=== PATIENT | female | born 1945 | race Caucasian/White ===

== ENCOUNTER 2016-06-13 04:17 | Emergency (ER) | payer MEDICARE, MEDICAID ==
[~2016-06-13] VITALS: Ht 149.9 cm; Wt 40.5 kg
[~2016-06-13 04:17] MED LIST: ADLT ASA LOW81 MG OR; ADVAIR DISK1 INH; ADVAIR HF1 IN; ALBUTEROL S2.5 MG/.5 NEB; ALBUTEROL SUL0.083 % IN; ALBUTEROL0.5 % IN; ALPRAZOLAM0.25 MG PO; AMLODIPINE BESYL5 MG PO; AMOXICILLIN500 M2 PO; ANTIDEPRESSANT; ASPIRIN EC325 MG PO; ASPIRIN EC81 MG PO; ASPIRIN325 MG PO; ATUSS DS OR; AUGMENTIN875 MG OR; AVELOX400 MG OR; AVELOX400 MG PO; AZITHROMYCIN250 MG PO; AZITHROMYCIN500 MG PO; BACTRIM DS1 TAB OR; BACTRIM DS1 TAB PO; CARVEDILOL3.125 MG PO; CRESTOR10 MG OR; CRESTOR5 MG OR; DARVOCET N-100100 - OR; DARVOCET-N 100100 MG OR; DIAZIDE; DOXYCYCL HYC100 MG PO; DUONEB IN; DUONEB INH; FLEXERIL OR; FLEXERIL10 MG PO; FOSAMAX70 MG OR; LASIX 20 MG20 MG/TAB PO; LASIX 40 MG TAB40 MG PO; LEVAQUIN500 MG PO; LEVAQUIN750 MG OR; LEVAQUIN750 MG PO; LISINOPRIL20 M1 PO; LISINOPRIL20 MG PO; LISINOPRIL5 MG OR; LORTAB 7.5 OR; LORTAB5 OR; LORTAB5 PO; LOVASTATIN20 M1 OR; LOVASTATIN20 M1 PO; MEDDOSEPAK OR; MEDDOSEPAK PO; MEVACOR40 MG PO; NAPROSYN500 MG OR; NAPROSYN500 MG PO; NAPROXEN500 MG OR; NORCO1 TA1 PO; NORVASC10 M1 PO; NORVASC5 MG PO; PERCOCET 5/325M1 TAB OR; PREDNISONE10 MG PO; PREDNISONE20 MG PO; PREDNISONE50 MG PO; ROBITUSSIN AC10 ML PO; SPIRIVA HANDIHALER IN; SYMBICORT1 AE1 IN; ULTRAM50 M1 PO; VALTREX500 MG PO; VISINE TEAR1 OP; XANAX0.25 MG OR; XANAX0.25 MG PO; XANAX0.5 MG OR; ZITHROMAX250 MG OR; ZITHROMAX500 MG PO; ZOFRAN4 M1 OR; ZOLOFT50 MG PO; ZPAK PO
--- NOTE | 2016-06-13 04:43 | NUR ---
BREATHING TREATMENT GIVEN. EXPLANATION GIVEN IN HOW TO BREATH DEEPLY FOR GOOD DEPOSITION FOR THE LUNGS.
[2016-06-13 05:01] LABS: HEMATOCRIT 36.4 % (37.0-47.0); HEMOGLOBIN 11.5 g/dl (12.0-16.0); IMMATURE GRANULOCYTES 0.1 % (0.0-1.0); MEAN CELL VOLUME 92.4 fL CALC (80.0-100.0); MEAN CORPUSCULAR HGB 29.2 pG CALC (26.0-32.0); MEAN CORPUSCULAR HGB CONC 31.6 g/L CALC (32.0-36.0); NEUT# 4.97 thou/uL (2.00-7.15); RED BLOOD COUNT 3.94 mill/uL (4.20-5.60)
[2016-06-13 05:09] LABS: ALBUMIN 4.1 g/dL (3.2-5.0); ALKALINE PHOSPHATASE 75 u/l (38-126); ANION GAP 13 (6-22 (CALC)); BILIRUBIN, TOTAL 0.6 mg/dL (0.0-1.4); BUN 14 mg/dL (8-23); BUN/CREATININE RATIO 23 (12-20 (CALC)); CALCIUM 9.2 mg/dL (8.4-10.2); CARBON DIOXIDE 38 mmol/l (22-30); CHLORIDE 93 mmol/l (95-108); CREATININE 0.6 mg/dL (0.5-1.0); GFR > 60 ML/MIN (>=60 (CALC)); GFR FOR AFR.AMER. > 60 ML/MIN (>=60 (CALC)); GLUCOSE 115 mg/dL (82-115); SGOT/AST 20 u/l (9-36); SGPT/ALT 21 u/l (11-66); SODIUM 140 mmol/l (137-146); TOTAL PROTEIN 7.4 g/dL (6.3-8.2)
[2016-06-13 05:21] LABS: MYOGLOBIN 23 ng/mL (0 - 62)
[2016-06-13] MEDS ORDERED: MEDDOSEPAK PO (05:38)
[2016-06-13 05:50] VITALS: BP 131/84
== END 2016-06-13 06:02 | disposition home or self-care (01) ==
LOC: ED 04:17 → ED-I 04:26 → ED 04:26 → ED-I 04:46 → ED 06:02
PROVIDERS: Emergency Medicine
DX: J44.1 Chronic obstructive pulmonary disease with (acute) exacerbation (principal); R06.02 Shortness of breath; R94.31 Abnormal electrocardiogram [ECG] [EKG]; R05 Cough; I10 Essential (primary) hypertension

== ENCOUNTER 2016-06-14 05:02 | Inpatient (IN) | payer MEDICARE, MEDICAID ==
[2016-06-14] VITALS (18 sets, daily range): BP systolic 98–135; BP diastolic 47–65
[~2016-06-14] VITALS: Ht 149.9 cm; Wt 40.1 kg
[2016-06-14 05:58] LABS: HEMATOCRIT 37.8 % (37.0-47.0); HEMOGLOBIN 11.6 g/dl (12.0-16.0); IMMATURE GRANULOCYTES 0.5 % (0.0-1.0); MEAN CELL VOLUME 95.7 fL CALC (80.0-100.0); MEAN CORPUSCULAR HGB 29.4 pG CALC (26.0-32.0); MEAN CORPUSCULAR HGB CONC 30.7 g/L CALC (32.0-36.0); NEUT# 11.67 thou/uL (2.00-7.15); RED BLOOD COUNT 3.95 mill/uL (4.20-5.60); RED CELL DISTRI WIDTH 13.1 % (11.5-15.5)
[2016-06-14 06:08] LABS: ALBUMIN 4.2 g/dL (3.2-5.0); ALKALINE PHOSPHATASE 66 u/l (38-126); ANION GAP 18 (6-22 (CALC)); BILIRUBIN, TOTAL 0.6 mg/dL (0.0-1.4); BUN 28 mg/dL (8-23); BUN/CREATININE RATIO 31 (12-20 (CALC)); CALCIUM 9.3 mg/dL (8.4-10.2); CARBON DIOXIDE 38 mmol/l (22-30); CHLORIDE 89 mmol/l (95-108); CREATININE 0.9 mg/dL (0.5-1.0); GFR > 60 ML/MIN (>=60 (CALC)); GFR FOR AFR.AMER. > 60 ML/MIN (>=60 (CALC)); GLUCOSE 301 mg/dL (82-115); POTASSIUM 4.7 mmol/l (3.5-5.1); SGOT/AST 22 u/l (9-36); SGPT/ALT 25 u/l (11-66); SODIUM 141 mmol/l (137-146); TOTAL PROTEIN 7.4 g/dL (6.3-8.2)
[2016-06-14 06:14] LABS: PROTHROMBIN TIME 10.7 SECONDS (9.0-12.5)
[2016-06-14 06:21] LABS: MYOGLOBIN 70 ng/mL (0 - 62)
[2016-06-15] VITALS (17 sets, daily range): BP systolic 113–166; BP diastolic 55–78
[2016-06-15 05:53] LABS: ANION GAP 9 (6-22 (CALC)); BUN 26 mg/dL (8-23); BUN/CREATININE RATIO 43 (12-20 (CALC)); CALCIUM 8.4 mg/dL (8.4-10.2); CARBON DIOXIDE 38 mmol/l (22-30); CHLORIDE 96 mmol/l (95-108); CREATININE 0.6 mg/dL (0.5-1.0); GFR > 60 ML/MIN (>=60 (CALC)); GFR FOR AFR.AMER. > 60 ML/MIN (>=60 (CALC)); GLUCOSE 111 mg/dL (82-115); MAGNESIUM 1.8 mg/dL (1.6-2.3); POTASSIUM 4.9 mmol/l (3.5-5.1); SODIUM 138 mmol/l (137-146)
[2016-06-15 06:40] LABS: HEMOGLOBIN 9.4 g/dl (12.0-16.0); MEAN CELL VOLUME 96.9 fL CALC (80.0-100.0); MEAN CORPUSCULAR HGB 29.4 pG CALC (26.0-32.0); MEAN CORPUSCULAR HGB CONC 30.3 g/L CALC (32.0-36.0); RED BLOOD COUNT 3.2 mill/uL (4.20-5.60); RED CELL DISTRI WIDTH 13.2 % (11.5-15.5)
[2016-06-16] VITALS (21 sets, daily range): BP systolic 90–186; BP diastolic 56–95
[2016-06-16 05:45] LABS: HEMATOCRIT 36.2 % (37.0-47.0); HEMOGLOBIN 10.8 g/dl (12.0-16.0); IMMATURE GRANULOCYTES 4.4 % (0.0-1.0); MEAN CELL VOLUME 97.8 fL CALC (80.0-100.0); MEAN CORPUSCULAR HGB 29.2 pG CALC (26.0-32.0); MEAN CORPUSCULAR HGB CONC 29.8 g/L CALC (32.0-36.0); NEUT# 8.32 thou/uL (2.00-7.15); RED BLOOD COUNT 3.7 mill/uL (4.20-5.60); RED CELL DISTRI WIDTH 13.1 % (11.5-15.5)
[2016-06-16 05:49] LABS: ANION GAP 15 (6-22 (CALC)); BUN 29 mg/dL (8-23); BUN/CREATININE RATIO 46 (12-20 (CALC)); CALCIUM 9.2 mg/dL (8.4-10.2); CARBON DIOXIDE 35 mmol/l (22-30); CHLORIDE 95 mmol/l (95-108); CREATININE 0.6 mg/dL (0.5-1.0); GFR > 60 ML/MIN (>=60 (CALC)); GFR FOR AFR.AMER. > 60 ML/MIN (>=60 (CALC)); GLUCOSE 108 mg/dL (82-115); POTASSIUM 5.1 mmol/l (3.5-5.1); SODIUM 140 mmol/l (137-146)
[2016-06-17] VITALS (14 sets, daily range): BP systolic 109–148; BP diastolic 50–74
[2016-06-17 04:42] LABS: HEMATOCRIT 33.4 % (37.0-47.0); IMMATURE GRANULOCYTES 1.5 % (0.0-1.0); MEAN CELL VOLUME 95.7 fL CALC (80.0-100.0); MEAN CORPUSCULAR HGB 28.7 pG CALC (26.0-32.0); MEAN CORPUSCULAR HGB CONC 29.9 g/L CALC (32.0-36.0); NEUT# 5.35 thou/uL (2.00-7.15); RED BLOOD COUNT 3.49 mill/uL (4.20-5.60); RED CELL DISTRI WIDTH 12.9 % (11.5-15.5)
[2016-06-17 04:56] LABS: BUN 28 mg/dL (8-23); BUN/CREATININE RATIO 42 (12-20 (CALC)); CALCIUM 8.9 mg/dL (8.4-10.2); CHLORIDE 91 mmol/l (95-108); CREATININE 0.7 mg/dL (0.5-1.0); GFR > 60 ML/MIN (>=60 (CALC)); GFR FOR AFR.AMER. > 60 ML/MIN (>=60 (CALC)); GLUCOSE 128 mg/dL (82-115); POTASSIUM 4.5 mmol/l (3.5-5.1); SODIUM 140 mmol/l (137-146)
[2016-06-17 05:02] LABS: ANION GAP 7 (6-22 (CALC))
[2016-06-17 05:14] LABS: CARBON DIOXIDE 47 mmol/l (22-30)
[2016-06-18] VITALS (7 sets, daily range): BP systolic 112–153; BP diastolic 50–64
[2016-06-18 04:37] LABS: HEMOGLOBIN 9.7 g/dl (12.0-16.0); IMMATURE GRANULOCYTES 1.3 % (0.0-1.0); MEAN CELL VOLUME 94.2 fL CALC (80.0-100.0); MEAN CORPUSCULAR HGB 29.5 pG CALC (26.0-32.0); MEAN CORPUSCULAR HGB CONC 31.3 g/L CALC (32.0-36.0); NEUT# 5.09 thou/uL (2.00-7.15); RED BLOOD COUNT 3.29 mill/uL (4.20-5.60); RED CELL DISTRI WIDTH 12.8 % (11.5-15.5)
[2016-06-18 04:47] LABS: ALBUMIN 3.2 g/dL (3.2-5.0); BUN 29 mg/dL (8-23); CALCIUM 9.1 mg/dL (8.4-10.2); CHLORIDE 93 mmol/l (95-108); CREATININE 0.9 mg/dL (0.5-1.0); GFR > 60 ML/MIN (>=60 (CALC)); GFR FOR AFR.AMER. > 60 ML/MIN (>=60 (CALC)); GLUCOSE 114 mg/dL (82-115); POTASSIUM 4.3 mmol/l (3.5-5.1); SODIUM 138 mmol/l (137-146)
[2016-06-18 04:59] LABS: CARBON DIOXIDE 42 mmol/l (22-30)
[2016-06-18] MEDS ORDERED: LASIX 20 MG20 MG/TAB PO (11:43)
[2016-06-18] MEDS ORDERED: XANAX0.25 MG PO (11:45)
[2016-06-18] MEDS ORDERED: PREDNISONE10 MG PO (11:45)
[2016-06-18] MEDS ORDERED: ZITHROMAX500 MG PO (11:47)
== END 2016-06-18 14:30 | DRG 189 ==
LOC: ENPENDDIS → ED 05:02 → ED-I 06:30 → ED 06:47 → ICU 06:48
PROVIDERS: Emergency Medicine; Internal Medicine; ADMIT Internal Medicine; ATTEND Internal Medicine
PROC: 5A09457 Assistance with Respiratory Ventilation, 24-96 Consecutive Hours, Continuous Positive Airway Pressure (ICD-10-PCS; 2016-06-14)
PROC: 3E0234Z Introduction of Serum, Toxoid and Vaccine into Muscle, Percutaneous Approach (ICD-10-PCS; principal; 2016-06-15)
DX: J96.22 Acute and chronic respiratory failure with hypercapnia (principal); E87.2 Acidosis; I27.2 Other secondary pulmonary hypertension; J44.0 Chronic obstructive pulmonary disease with (acute) lower respiratory infection; Z99.81 Dependence on supplemental oxygen; J44.1 Chronic obstructive pulmonary disease with (acute) exacerbation; J96.21 Acute and chronic respiratory failure with hypoxia; J20.9 Acute bronchitis, unspecified; G47.33 Obstructive sleep apnea (adult) (pediatric); I25.10 Atherosclerotic heart disease of native coronary artery without angina pectoris; I10 Essential (primary) hypertension; M19.90 Unspecified osteoarthritis, unspecified site; F32.9 Major depressive disorder, single episode, unspecified; F41.1 Generalized anxiety disorder; I73.9 Peripheral vascular disease, unspecified; I35.0 Nonrheumatic aortic (valve) stenosis; E78.5 Hyperlipidemia, unspecified; Z87.891 Personal history of nicotine dependence; Z23 Encounter for immunization; Z95.820 Peripheral vascular angioplasty status with implants and grafts
CPT/HCPCS: J0692; J1956

== ENCOUNTER 2016-07-28 09:44 | Emergency (ER) | payer MEDICARE, MEDICAID ==
[~2016-07-28] VITALS: Ht 149.9 cm; Wt 43.2 kg
[2016-07-28] MEDS ORDERED: MELATONIN1 TA1 PO (10:09)
[2016-07-28 10:23] LABS: HEMATOCRIT 37.2 % (37.0-47.0); HEMOGLOBIN 11.5 g/dl (12.0-16.0); IMMATURE GRANULOCYTES 0.8 % (0.0-1.0); MEAN CELL VOLUME 93.9 fL CALC (80.0-100.0); MEAN CORPUSCULAR HGB CONC 30.9 g/L CALC (32.0-36.0); NEUT# 13.96 thou/uL (2.00-7.15); RED BLOOD COUNT 3.96 mill/uL (4.20-5.60); RED CELL DISTRI WIDTH 12.6 % (11.5-15.5)
[2016-07-28 10:32] LABS: ALBUMIN 4.4 g/dL (3.2-5.0); ALKALINE PHOSPHATASE 88 u/l (38-126); ANION GAP 15 (6-22 (CALC)); BILIRUBIN, TOTAL 1.7 mg/dL (0.0-1.4); BUN 32 mg/dL (8-23); BUN/CREATININE RATIO 42 (12-20 (CALC)); CALCIUM 9.6 mg/dL (8.4-10.2); CARBON DIOXIDE 38 mmol/l (22-30); CHLORIDE 96 mmol/l (95-108); CREATININE 0.8 mg/dL (0.5-1.0); GFR > 60 ML/MIN (>=60 (CALC)); GFR FOR AFR.AMER. > 60 ML/MIN (>=60 (CALC)); GLUCOSE 128 mg/dL (82-115); POTASSIUM 5.1 mmol/l (3.5-5.1); SGOT/AST 57 u/l (9-36); SGPT/ALT 34 u/l (11-66); SODIUM 143 mmol/l (137-146); TOTAL PROTEIN 7.7 g/dL (6.3-8.2)
[2016-07-28 10:45] LABS: MYOGLOBIN 78 ng/mL (0 - 62)
[2016-07-28 11:55] VITALS: BP 109/53
== END 2016-07-28 12:01 | disposition short-term general hospital (02) ==
LOC: ED 09:44
PROVIDERS: Emergency Medicine
DX: I21.4 Non-ST elevation (NSTEMI) myocardial infarction (principal); I25.10 Atherosclerotic heart disease of native coronary artery without angina pectoris; I10 Essential (primary) hypertension; Z95.5 Presence of coronary angioplasty implant and graft; R06.02 Shortness of breath; R05 Cough; J44.9 Chronic obstructive pulmonary disease, unspecified
CPT/HCPCS: J1650

== ENCOUNTER 2016-08-27 03:49 | Inpatient (IN) | payer MEDICARE, MEDICAID ==
[2016-08-27] VITALS (14 sets, daily range): BP systolic 110–157; BP diastolic 50–86
[~2016-08-27] VITALS: Ht 149.9 cm; Wt 43.2 kg
[~2016-08-27 03:49] MED LIST changes: -LISINOPRIL20 MG PO; +MELATONIN1 TA1 PO; +ZESTRIL5 MG PO
[2016-08-27 04:54] LABS: ALBUMIN 3.7 g/dL (3.2-5.0); ALKALINE PHOSPHATASE 76 u/l (38-126); ANION GAP 11 (6-22 (CALC)); BILIRUBIN, TOTAL 0.8 mg/dL (0.0-1.4); BUN 12 mg/dL (8-23); BUN/CREATININE RATIO 20 (12-20 (CALC)); CALCIUM 8.9 mg/dL (8.4-10.2); CARBON DIOXIDE 37 mmol/l (22-30); CHLORIDE 97 mmol/l (95-108); CREATININE 0.6 mg/dL (0.5-1.0); GFR > 60 ML/MIN (>=60 (CALC)); GFR FOR AFR.AMER. > 60 ML/MIN (>=60 (CALC)); GLUCOSE 216 mg/dL (82-115); POTASSIUM 4.6 mmol/l (3.5-5.1); SGOT/AST 50 u/l (9-36); SGPT/ALT 53 u/l (11-66); SODIUM 141 mmol/l (137-146); TOTAL PROTEIN 6.3 g/dL (6.3-8.2)
[2016-08-27 05:04] LABS: HEMATOCRIT 31.3 % (37.0-47.0); HEMOGLOBIN 9.4 g/dl (12.0-16.0); IMMATURE GRANULOCYTES 0.5 % (0.0-1.0); MEAN CELL VOLUME 95.4 fL CALC (80.0-100.0); MEAN CORPUSCULAR HGB 28.7 pG CALC (26.0-32.0); NEUT# 9.54 thou/uL (2.00-7.15); RED BLOOD COUNT 3.28 mill/uL (4.20-5.60); RED CELL DISTRI WIDTH 12.5 % (11.5-15.5)
[2016-08-27 05:06] LABS: MYOGLOBIN 24 ng/mL (0 - 62)
[2016-08-28 00:01] VITALS: BP 111/53
[2016-08-28 02:00] VITALS: BP 132/45
[2016-08-28 04:00] VITALS: BP 136/61
[2016-08-28 04:55] LABS: HEMATOCRIT 28.1 % (37.0-47.0); HEMOGLOBIN 8.7 g/dl (12.0-16.0); IMMATURE GRANULOCYTES 0.3 % (0.0-1.0); MEAN CORPUSCULAR HGB 29.1 pG CALC (26.0-32.0); NEUT# 6.68 thou/uL (2.00-7.15); RED BLOOD COUNT 2.99 mill/uL (4.20-5.60); RED CELL DISTRI WIDTH 12.7 % (11.5-15.5)
[2016-08-28 05:02] LABS: ANION GAP 11 (6-22 (CALC)); BUN 24 mg/dL (8-23); BUN/CREATININE RATIO 37 (12-20 (CALC)); CARBON DIOXIDE 39 mmol/l (22-30); CHLORIDE 98 mmol/l (95-108); CREATININE 0.6 mg/dL (0.5-1.0); GFR > 60 ML/MIN (>=60 (CALC)); GFR FOR AFR.AMER. > 60 ML/MIN (>=60 (CALC)); GLUCOSE 139 mg/dL (82-115); POTASSIUM 5.1 mmol/l (3.5-5.1); SODIUM 143 mmol/l (137-146)
[2016-08-28 05:30] LABS: URINE BILIRUBIN - DIPSTICK NEGATIVE (NEGATIVE); URINE BLOOD DIPSTICK NEGATIVE (NEGATIVE); URINE CLARITY CLEAR; URINE COLOR YELLOW; URINE GLUCOSE - DIPSTICK NEGATIVE (NEGATIVE); URINE KETONE NEGATIVE (NEGATIVE); URINE LEUK ESTERASE NEGATIVE (NEGATIVE); URINE NITRITE - DIPSTICK NEGATIVE (Negative); URINE PROTEIN - DIPSTICK TRACE mg/dL (NEG-TRACE); URINE SPECIFIC GRAVITY 1.025; URINE UROBILINOGEN - DIPSTICK 0.2 E.U./dL (0.2)
[2016-08-28 05:55] VITALS: BP 123/63
[2016-08-28 08:00] VITALS: BP 140/59
[2016-08-28 10:00] VITALS: BP 155/66
[2016-08-28] MEDS ORDERED: PREDNISONE10 MG PO (10:56)
[2016-08-28] MEDS ORDERED: ZITHROMAX500 MG PO (10:56)
[2016-08-29] MEDS ORDERED: PROTONIX40 M2 PO (16:39)
[2016-08-29] MEDS ORDERED: LASIX 40 MG TAB40 MG PO (16:39)
[2016-08-29] MEDS ORDERED: COREG3.125 MG PO (16:42)
[2016-08-29] MEDS ORDERED: ALDACTONE25 MG PO (16:43)
== END 2016-08-28 12:35 | disposition home or self-care (01) | DRG 189 ==
LOC: ENPENDDIS → ED 03:49 → ED-I 05:21 → ED 05:31 → ICU 05:32
PROVIDERS: Emergency Medicine; Nurse Practitioner Family; ADMIT Internal Medicine; ATTEND Internal Medicine
PROC: 5A09357 Assistance with Respiratory Ventilation, Less than 24 Consecutive Hours, Continuous Positive Airway Pressure (ICD-10-PCS; principal; 2016-08-27)
DX: J96.22 Acute and chronic respiratory failure with hypercapnia (principal); J44.0 Chronic obstructive pulmonary disease with (acute) lower respiratory infection; I35.0 Nonrheumatic aortic (valve) stenosis; Z99.81 Dependence on supplemental oxygen; J20.9 Acute bronchitis, unspecified; I10 Essential (primary) hypertension; J96.11 Chronic respiratory failure with hypoxia; I25.10 Atherosclerotic heart disease of native coronary artery without angina pectoris; F32.9 Major depressive disorder, single episode, unspecified; I73.9 Peripheral vascular disease, unspecified; E78.5 Hyperlipidemia, unspecified; F41.1 Generalized anxiety disorder; G47.33 Obstructive sleep apnea (adult) (pediatric); I25.2 Old myocardial infarction; Z91.19 Patient's noncompliance with other medical treatment and regimen; Z95.5 Presence of coronary angioplasty implant and graft; Z87.891 Personal history of nicotine dependence; Z95.820 Peripheral vascular angioplasty status with implants and grafts
CPT/HCPCS: J1650

== ENCOUNTER 2016-08-29 11:28 | Inpatient (IN) | payer MEDICARE, MEDICAID ==
[2016-08-29] VITALS (8 sets, daily range): BP systolic 104–152; BP diastolic 48–76
[~2016-08-29] VITALS: Ht 149.9 cm; Wt 50.0 kg
--- NOTE | 2016-08-29 11:36 | NUR ---
EMS STRETCHER TO ER ROOM 10, TO BED. PT CONVERSATIONALLY DYSPNEIC UNABLE TO SPEAK BUT A FEW WORDS. IN TRIPOD POSITION USING ACCESSORY MUSCLES.
--- NOTE | 2016-08-29 11:40 | NUR ---
PLACED ON BIPAP PER RT AND O2 SAT INCREASED TO 95%, RESP SLOWED TO 26PM, LESS LABORED, PT STATES "I ALREADY FEEL BETTER". INITIATED SECOND IV PT DISLODGED EMS SITE.
--- NOTE | 2016-08-29 12:12 | NUR ---
PT RESTING WITH HOB ELEVATED. CONTINUES ON BIPAP IN NO ACUTE DISTRESS. O2 SAT 96%, VSS. SKIN PWD. PT ALERT AND CONVERSIVE WHEN AWOKEN, NO DYSPNEA NOTED WHILE ON BIPAP
[2016-08-29 12:16] LABS: HEMATOCRIT 30.4 % (37.0-47.0); HEMOGLOBIN 9.2 g/dl (12.0-16.0); IMMATURE GRANULOCYTES 0.8 % (0.0-1.0); MEAN CELL VOLUME 96.5 fL CALC (80.0-100.0); MEAN CORPUSCULAR HGB 29.2 pG CALC (26.0-32.0); MEAN CORPUSCULAR HGB CONC 30.3 g/L CALC (32.0-36.0); NEUT# 13.17 thou/uL (2.00-7.15); RED BLOOD COUNT 3.15 mill/uL (4.20-5.60); RED CELL DISTRI WIDTH 13.2 % (11.5-15.5)
[2016-08-29 12:21] LABS: ALBUMIN 3.7 g/dL (3.2-5.0); ALKALINE PHOSPHATASE 64 u/l (38-126); BILIRUBIN, TOTAL 0.8 mg/dL (0.0-1.4); BUN 25 mg/dL (8-23); BUN/CREATININE RATIO 35 (12-20 (CALC)); CALCIUM 9.4 mg/dL (8.4-10.2); CHLORIDE 96 mmol/l (95-108); CREATININE 0.7 mg/dL (0.5-1.0); GFR > 60 ML/MIN (>=60 (CALC)); GFR FOR AFR.AMER. > 60 ML/MIN (>=60 (CALC)); GLUCOSE 116 mg/dL (82-115); SGOT/AST 85 u/l (9-36); SGPT/ALT 101 u/l (11-66); SODIUM 143 mmol/l (137-146); TOTAL PROTEIN 6.3 g/dL (6.3-8.2)
[2016-08-29 12:33] LABS: MYOGLOBIN 40 ng/mL (0 - 62)
[2016-08-29 12:44] LABS: ANION GAP 14 (6-22 (CALC)); CARBON DIOXIDE 39 mmol/l (22-30); POTASSIUM 5.5 mmol/l (3.5-5.1)
--- NOTE | 2016-08-29 13:16 | NUR ---
RT AT BEDSIDE ADMINISTERING BREATHING TREATMENT. PT TOELRATING WELL. TRIAL TO O2@3LPM VIA NC PER .
--- NOTE | 2016-08-29 13:55 | NUR ---
SPOKE WITH ANTONIO AND NOTIFIED OF IMPROVEMENT IN PTS CONDITION. ANTONIO STATES SHE WILL GET A RIDE TO ED TO RN TRANSITIONAL PT. INSTRUCTED TO BRING CPAP SO RESPIRATORY CAN REVIEW O2 SETUP WITH CPAP MACHINE. STATES UNDERSTANDING. PT AWARE AND AGREEABLE TO SAME.
--- NOTE | 2016-08-29 14:40 | NUR ---
PTS FAMILY ARRIVES, ANN FROM RT AT BEDSIDE AND DISCUSSED SETTINGS AND APPLYING O2 TO PTS HOME CPAP WITH PTS GRANDDAUGHTER. GRANDDAUGHTER RETURNS DEMO. PT AWAKE AND ALERT DRINKING JUICE ON O2@3LPM VIA NC
--- NOTE | 2016-08-29 15:15 | NUR ---
PT BECAME VERY DYSPNEIC WHEN SWITCHING OVER TO HOME O2. O2 SAT DROPPED TO 72% RT AT BEDSIDE AND BIPAP REAPPLIED PER MD ORDER.
--- NOTE | 2016-08-29 15:47 | NUR ---
PER GRANDDAUGHTER SERGEY, PT TAKES "A LOT MORE MEDICINE AT HOME" FAMILY WENT HOME TO GET MEDS SO NURSE CAN UPDATE MED REC.
--- NOTE | 2016-08-29 15:59 | NUR ---
PT RESTING IN NO ACUTE DISTRESS.VV ON CONTINUOUS BIPAP
--- NOTE | 2016-08-29 16:25 | NUR ---
PT ICU IN STABLE CONDITION VIA STRETCHER, BIPAP IN PLACE.
--- NOTE | 2016-08-29 16:30 | NUR ---
PT TRANSFERRED VIA STRETCHER AND 3 STAFF MEMBERS FROM ER TO ICU. PT IS ON BIPAP. SETTINGS PER RT FLOW SHEET. PT SPO2 IS 96%. PT DOES NOT APPEAR TO BE IN RESPIRATORY DISTRESS. ABLE TO COMMUNICATE WHILE WEARING BIPAP. PT HISTORY OBTAINED, ASSESSMENT PERFORMED, MEDICATION REC UPDATED ALSO. PT ORIENTATED TO ROOM, RIGHTS, RESPONSIBILITIES AND CALL LIGHT. PT DENIES PAIN OF ANY NATURE. VSS, CERTIFIED PROSTHETIST/ORTHOTIST IN PLACE THAT READS SR HR 65-75. INSTRUCTED PT TO CALL FOR ASSISTANCE, PT VERBALIZES UNDERSTANDING.
[2016-08-29] MEDS ORDERED: PROTONIX40 M2 PO (16:39)
[2016-08-29] MEDS ORDERED: LASIX 40 MG TAB40 MG PO (16:39)
--- NOTE | 2016-08-29 16:40 | NUR ---
PT STATES "TAKE THIS DAMN MASK OFF OF ME, I WANT TO WEAR MY NASAL CANNULA." BIPAP PLACED ON STANDBY, AND NC APPLIED. PT TOLERATING SOURCE OF O2 WITHOUT DIFFICULTY, SPO2 >92% ON 3L. CALL LIGHT WITHIN REACH. INSTRUCTED PT TO CALL FOR ASSISTANCE, PT STATES UNDERSTANDING.
[2016-08-29] MEDS ORDERED: COREG3.125 MG PO (16:42)
[2016-08-29] MEDS ORDERED: ALDACTONE25 MG PO (16:43)
--- NOTE | 2016-08-29 18:50 | NUR ---
RECEIVED REPORT FROM LEON BARFIELD RN. INTRODUCED TO PT, FOUND PT SLEEPING QUIELTY IN BED, A/O X3; DENIES PAIN OR SOB, RESP ARE EVEN AND UNLABORED, VOICES NO COMPLAINTS AT THIS TIME, VSS, WILL FOLLOW UP WITH ASSESSMENT AND MEDS.
--- NOTE | 2016-08-29 20:35 | NUR ---
ASSISTED PT OOB TO BSC, UNSTEADY GAIT NOTED, VOIDED 300 ML OF CONCENTRATED YELLOW URINE, NOW SITTING ON SIDE OF BED EATING DINNER, WARMED DINER IN MICROWAVE, PT TOLERATED ACTIVITY WELL, O2SATS ARE 93% ON 3LPM VIA NC, NO BM NOTED AT THIS TIME; PM ASSESSMENT COMPLETED AT THIS TIME, SEE INTERVENTIONS FOR DETAILS, LUNGS ARE DIMINISHED ALLTHROUGHOUT, ERNESTO HOSE ARE IN PLACE, REINFORCED SAFETY MEASURES, EXPLAINED PLAN OF CARE AND MED SCHEDULE, VOICES UNDERSTANDING. SR ON MONITOR, HR 62. PT STATES USES 3L OF O2 VIA NC AT HOME ONLY WHEN SHE FEELS SHE NEEDS IT, STATES USES ASSISTIVE DEVICES AT HOME TO AMBULATE, PT DENIES FEELING SOB WHILE EATING, WILL CONTINUE TO MONITOR.
--- NOTE | 2016-08-29 21:10 | NUR ---
PT TALKACTIVE ON THE PHONE AT THIS TIME. SPO2 97% AT THIS TIME WHILE ON THE PHONE.
--- NOTE | 2016-08-29 22:08 | NUR ---
PT APPEARS TO BE SLEEPING IN BED, RESPONDS TO VERBAL STIMULI, RESP ARE UNLABORED, DENIES PAIN OR SOB, SPO2 100% ON 3LPM VIA NC, NO DISTRESS NOTED, WILL CONTINUE TO MONITOR.
[2016-08-30] VITALS (12 sets, daily range): BP systolic 106–174; BP diastolic 53–78
--- NOTE | 2016-08-30 00:58 | NUR ---
PT RESP ARE EVEN AND UNLABORED, PT IS AFEBRILE, VSS, CONTINUE SR ON MONITOR, HR 60, SPO2 100% AT THIS TIME, VOICES NO COMPLAINTS, DENIES PAIN OR DISCOMFORT, WILL CONTINUE TO MONITOR.
--- NOTE | 2016-08-30 01:55 | NUR ---
PT APPEARS TO BE SLEEPING, AROUSES TO VERBAL OR PHYSICAL STIMULI, OFFERS NO COMPLAINTS, NO SIGNS OF DISTRESS NOTED, VSS, RESP ARE EVEN AND UNLABORED, SPO2 100% 3L O2 NC; WILL CONTINUE TO MONITOR.
--- NOTE | 2016-08-30 04:00 | NUR ---
ASSISTED PT OOB TO BSC, VOIDED 500 ML OF CLEAR YELLOW URINE, PT TOLERATED ACTIVITY WELL, SPO2 98% DURING ACTIVITY, RESP ARE EVEN AND UNLABORED, NO DISTRESS NOTED, PT DENIES PAIN OR SOB, PROVIDED FRESH WATER AND APPLE JUICE PER PT REQUEST, COLLECTED U/A AND SENT IT TO LAB. ENCOURAGED PT TO CALL IF NEEDED, VSS AND AFEBRILE, SAFETY MEASURES REMAIN IN PLACES.
[2016-08-30 04:45] LABS: URINE BILIRUBIN - DIPSTICK NEGATIVE (NEGATIVE); URINE BLOOD DIPSTICK NEGATIVE (NEGATIVE); URINE CLARITY CLEAR; URINE COLOR YELLOW; URINE GLUCOSE - DIPSTICK NEGATIVE (NEGATIVE); URINE KETONE NEGATIVE (NEGATIVE); URINE LEUK ESTERASE NEGATIVE (NEGATIVE); URINE NITRITE - DIPSTICK NEGATIVE (Negative); URINE PROTEIN - DIPSTICK NEGATIVE (NEG-TRACE); URINE SPECIFIC GRAVITY 1.025; URINE UROBILINOGEN - DIPSTICK 0.2 E.U./dL (0.2)
[2016-08-30 05:30] LABS: BUN 28 mg/dL (8-23); BUN/CREATININE RATIO 48 (12-20 (CALC)); CALCIUM 9.2 mg/dL (8.4-10.2); CHLORIDE 96 mmol/l (95-108); CREATININE 0.6 mg/dL (0.5-1.0); GFR > 60 ML/MIN (>=60 (CALC)); GFR FOR AFR.AMER. > 60 ML/MIN (>=60 (CALC)); GLUCOSE 135 mg/dL (82-115); POTASSIUM 5.1 mmol/l (3.5-5.1); SODIUM 143 mmol/l (137-146)
[2016-08-30 05:38] LABS: ANION GAP 11 (6-22 (CALC))
[2016-08-30 05:51] LABS: IMMATURE GRANULOCYTES 0.7 % (0.0-1.0); MEAN CELL VOLUME 94.9 fL CALC (80.0-100.0); MEAN CORPUSCULAR HGB 29.2 pG CALC (26.0-32.0); MEAN CORPUSCULAR HGB CONC 30.8 g/L CALC (32.0-36.0); NEUT# 5.39 thou/uL (2.00-7.15); RED BLOOD COUNT 2.74 mill/uL (4.20-5.60); RED CELL DISTRI WIDTH 12.8 % (11.5-15.5)
--- NOTE | 2016-08-30 06:25 | NUR ---
PT CONTINUES RESTING IN BED WITH EYES CLOSED, LYING IN SEMI GAY'S POSITION, RESP ARE EVEN AND UNLABORED, DENIES PAIN OR OTHER DISCOMFORT, SR ON MONITOR, HR 62, SPO2 100% AT THIS TIME, NOT DISTRESS NOTED, WILL CONTINUE TO MONITOR.
--- NOTE | 2016-08-30 06:45 | NUR ---
REPORT RECEIVED FROM JESI KUMAR. PT RESTING WITH EYES CLOSED WEARING NC @ 3L. DOES NOT APPEAR TO BE IN ANY TYPE OF DISTRESS. VSS. CALL LIGHT WITHIN REACH, WILL CONTINUE TO MONITOR.
[2016-08-30 06:58] LABS: CARBON DIOXIDE 41 mmol/l (22-30)
--- NOTE | 2016-08-30 08:30 | NUR ---
PT ATTEMPTED MEAL TRAY AND ATE LESS THAN 25%. PT APPEARS TO BE SOB WITH MINIMAL AMOUNT OF EXERTION. ASLEEP WHEN MEAL TRAY PICKED UP. WILL CONTINUE TO ENCOURAGE PT TO EAT ONCE AWAKE.
--- NOTE | 2016-08-30 10:30 | NUR ---
PT REMAINS RESTING SEMI FOWLERS WITH EYES CLOSED. VSS. WILL CONTINUE TO MONITOR
--- NOTE | 2016-08-30 11:30 | NUR ---
IN TO SEE PT AT THIS TIME. PT WILLING TO WEAR HOME BIPAP AND DISCHARGE TO REHAB FACILITY AFTER HOSPITAL DISCHARGE. [employer] JESI NOONAN. NOTIFIED. STATES WILL START PAPERWORK ON Wednesday08/31/16.
--- NOTE | 2016-08-30 13:21 | NUR ---
REPORT CALLED TO [facility], SPOKE WITH JESI MEDINA. PT AWARE OF TRANSFER TO DIFFERENT UNIT. VOICES NO CONCERNS AT THIS TIME.
--- NOTE | 2016-08-30 14:47 | NUR ---
REPORT RECEIVED FROM DELMY IN ICU, PT ARRIVED ON UNIT VIA W/C, ALERT AND ORIENTED X 3, ORIENTED TO ROOM AND CALL KERR, O2 @ 3L VIA NC IN PLACE, TELE MONITOR PLACED, WILL CONTINUE TO MONITOR.
--- NOTE | 2016-08-30 19:00 | NUR ---
RECEIVED SHIFT REPORT FROM JESI MEDINA. PATIENT LAYING IN BED AND APPEARS NOT TO BE IN ANY APPARENT ACUTE DISTRESS OR DISCOMFORT. WILL CONTINUE TO MONITOR.
--- NOTE | 2016-08-30 20:00 | NUR ---
PATIENT AMBULATED TO BATHROOM WITH O2. SOB WITH EXERTION
--- NOTE | 2016-08-30 20:20 | NUR ---
C/O HEADACHE. DR MEANS NOTIFIED. ORDERS RECEIDED FOR TYLENOL 650 MG PO Q6H PRN
--- NOTE | 2016-08-30 22:30 | NUR ---
REQUEST TO HOLD XANAX 0.25 DOSE UNTIL LATER WHEN SHE IS READY TO GO TO SLEEP.
--- NOTE | 2016-08-31 | NUR ---
PATIENT IS AWAKE AND LAYING IN BED WATCHING TV. NO APPARENT ACUTE DISTRESS OR DISCOMFORT NOTED.
--- NOTE | 2016-08-31 04:00 | NUR ---
PATIENT RESTING WITH EYES CLOSED AND APPEARS TO BE A SLEEP. NO APPARENT ACUTE DISTRESS OR DISCMFORT NOTED.
[2016-08-31 04:46] VITALS: BP 109/53
[2016-08-31 05:20] LABS: HEMATOCRIT 27.4 % (37.0-47.0); HEMOGLOBIN 8.3 g/dl (12.0-16.0); IMMATURE GRANULOCYTES 2.9 % (0.0-1.0); MEAN CELL VOLUME 96.1 fL CALC (80.0-100.0); MEAN CORPUSCULAR HGB 29.1 pG CALC (26.0-32.0); MEAN CORPUSCULAR HGB CONC 30.3 g/L CALC (32.0-36.0); NEUT# 7.64 thou/uL (2.00-7.15); RED BLOOD COUNT 2.85 mill/uL (4.20-5.60); RED CELL DISTRI WIDTH 12.6 % (11.5-15.5)
[2016-08-31 05:30] LABS: BUN 29 mg/dL (8-23); BUN/CREATININE RATIO 43 (12-20 (CALC)); CALCIUM 8.9 mg/dL (8.4-10.2); CHLORIDE 92 mmol/l (95-108); CREATININE 0.7 mg/dL (0.5-1.0); GFR > 60 ML/MIN (>=60 (CALC)); GFR FOR AFR.AMER. > 60 ML/MIN (>=60 (CALC)); GLUCOSE 130 mg/dL (82-115); POTASSIUM 4.8 mmol/l (3.5-5.1); SODIUM 142 mmol/l (137-146)
[2016-08-31 05:36] LABS: ANION GAP 9 (6-22 (CALC))
[2016-08-31 05:50] LABS: CARBON DIOXIDE 46 mmol/l (22-30)
--- NOTE | 2016-08-31 05:50 | NUR ---
LAB CALLED TO REPORT A CRITICAL CARBON DIOXIDE RESULT OF 46. WILL NOTIFY
[2016-08-31 07:27] VITALS: BP 122/50
--- NOTE | 2016-08-31 08:00 | NUR ---
PT DROWSY/AROUSABLE; DENIES PAIN; TELE MONITOR IN PLACE; ENCOURAGE USE OF CALL LIGHT IF ANY ASSISTANCE IS NEEDED; WILL CONTINUE TO MONITOR.
[2016-08-31 11:00] VITALS: BP 152/62
[2016-08-31] MEDS ORDERED: DOXYCYCL HYC100 MG PO (11:23)
[2016-08-31] MEDS ORDERED: ALPRAZOLAM0.25 MG PO (11:23)
[2016-08-31] MEDS ORDERED: PREDNISONE10 MG PO (11:23)
--- NOTE | 2016-08-31 13:22 | NUR ---
REPORT CALLED TO DAVE MALHOTRA AT [facility];
--- NOTE | 2016-08-31 13:55 | NUR ---
Discharge instructions given. Patient verbalizes understanding of same. Discharged in stable condition via Wheelchair to [facility] with *Other. All belongings sent with pt.
== END 2016-08-31 13:52 | DRG 189 ==
LOC: ENPENDDIS → ED 11:28 → ED-I 15:20 → ED 15:33 → MS2 15:39 → ICU 15:39 → MS2 08-30 13:50
PROVIDERS: Emergency Medicine; ADMIT Internal Medicine; ATTEND Internal Medicine
PROC: 5A09357 Assistance with Respiratory Ventilation, Less than 24 Consecutive Hours, Continuous Positive Airway Pressure (ICD-10-PCS; principal; 2016-08-29)
DX: J96.22 Acute and chronic respiratory failure with hypercapnia (principal); E87.2 Acidosis; J44.0 Chronic obstructive pulmonary disease with (acute) lower respiratory infection; E87.5 Hyperkalemia; Z99.81 Dependence on supplemental oxygen; J44.1 Chronic obstructive pulmonary disease with (acute) exacerbation; J96.11 Chronic respiratory failure with hypoxia; J20.9 Acute bronchitis, unspecified; I10 Essential (primary) hypertension; E78.5 Hyperlipidemia, unspecified; F32.9 Major depressive disorder, single episode, unspecified; I35.0 Nonrheumatic aortic (valve) stenosis; I25.10 Atherosclerotic heart disease of native coronary artery without angina pectoris; I73.9 Peripheral vascular disease, unspecified; F41.1 Generalized anxiety disorder; G47.33 Obstructive sleep apnea (adult) (pediatric); Z87.891 Personal history of nicotine dependence; Z95.5 Presence of coronary angioplasty implant and graft; Z91.19 Patient's noncompliance with other medical treatment and regimen
CPT/HCPCS: J1650

== ENCOUNTER 2016-09-12 00:55 | Inpatient (IN) | payer MEDICARE, MEDICAID ==
[~2016-09-12] VITALS: Ht 149.9 cm; Wt 47.0 kg
[2016-09-12] VITALS (25 sets, daily range): BP systolic 70–119; BP diastolic 29–52
[~2016-09-12 00:55] MED LIST changes: +ALDACTONE25 MG PO; +COREG3.125 MG PO; +PROTONIX40 M2 PO
[2016-09-12 01:33] LABS: HEMATOCRIT 35.5 % (37.0-47.0); HEMOGLOBIN 10.5 g/dl (12.0-16.0); IMMATURE GRANULOCYTES 2.1 % (0.0-1.0); MEAN CELL VOLUME 97.5 fL CALC (80.0-100.0); MEAN CORPUSCULAR HGB 28.8 pG CALC (26.0-32.0); MEAN CORPUSCULAR HGB CONC 29.6 g/L CALC (32.0-36.0); NEUT# 9.87 thou/uL (2.00-7.15); RED BLOOD COUNT 3.64 mill/uL (4.20-5.60); RED CELL DISTRI WIDTH 12.8 % (11.5-15.5)
[2016-09-12 01:51] LABS: ACT PARTIAL THROMBO TIME 24.1 SECONDS (20.0-32.5); INTERNATIONAL NORMALIZED RATIO 0.9 RATIO (0.7-1.3); PROTHROMBIN TIME 10.1 SECONDS (9.0-12.5)
[2016-09-12 02:02] LABS: MYOGLOBIN 22 ng/mL (0 - 62)
[2016-09-12 02:06] LABS: ALBUMIN 3.8 g/dL (3.2-5.0); ALKALINE PHOSPHATASE 63 u/l (38-126); BILIRUBIN, TOTAL 0.9 mg/dL (0.0-1.4); BUN 21 mg/dL (8-23); BUN/CREATININE RATIO 39 (12-20 (CALC)); CHLORIDE 84 mmol/l (95-108); CREATININE 0.5 mg/dL (0.5-1.0); GFR > 60 ML/MIN (>=60 (CALC)); GFR FOR AFR.AMER. > 60 ML/MIN (>=60 (CALC)); GLUCOSE 166 mg/dL (82-115); POTASSIUM 3.9 mmol/l (3.5-5.1); SGOT/AST 29 u/l (9-36); SGPT/ALT 37 u/l (11-66); SODIUM 139 mmol/l (137-146); TOTAL PROTEIN 6.4 g/dL (6.3-8.2)
[2016-09-12 02:07] LABS: ANION GAP 10 (6-22 (CALC)); CARBON DIOXIDE 49 mmol/l (22-30)
[2016-09-12 04:01] LABS: BARBITURATES NEGATIVE (NEGATIVE); COCAINE NEGATIVE (NEGATIVE); METHADONE NEGATIVE (NEGATIVE); OXCYCODONE NEGATIVE (NEGATIVE); TETRAHYDROCANNABIONOL NEGATIVE (NEGATIVE); TRICYLIC ANTIDEPRESSANTS NEGATIVE (NEGATIVE)
[2016-09-12 04:02] LABS: URINE BILIRUBIN - DIPSTICK NEGATIVE (NEGATIVE); URINE BLOOD DIPSTICK SMALL (NEGATIVE); URINE CLARITY CLEAR; URINE COLOR YELLOW; URINE GLUCOSE - DIPSTICK 100 mg/dL (NEGATIVE); URINE KETONE NEGATIVE (NEGATIVE); URINE LEUK ESTERASE SMALL (NEGATIVE); URINE NITRITE - DIPSTICK NEGATIVE (Negative); URINE PH 5.5 (4.5-8.0); URINE PROTEIN - DIPSTICK NEGATIVE (NEG-TRACE); URINE UROBILINOGEN - DIPSTICK 0.2 E.U./dL (0.2)
[2016-09-12 04:15] LABS: URINE BACTERIA MODERATE hpf; URINE SQUAMOUS EPITHELIAL CELL RARE EPI/hpf (0-FEW); URINE TRICHOMONAS FEW hpf
[2016-09-13] VITALS (12 sets, daily range): BP systolic 108–152; BP diastolic 49–87
[2016-09-13 05:16] LABS: ANION GAP 7 (6-22 (CALC)); BUN 16 mg/dL (8-23); BUN/CREATININE RATIO 31 (12-20 (CALC)); CALCIUM 7.2 mg/dL (8.4-10.2); CARBON DIOXIDE 38 mmol/l (22-30); CHLORIDE 101 mmol/l (95-108); CREATININE 0.5 mg/dL (0.5-1.0); GFR > 60 ML/MIN (>=60 (CALC)); GFR FOR AFR.AMER. > 60 ML/MIN (>=60 (CALC)); GLUCOSE 135 mg/dL (82-115); POTASSIUM 4.6 mmol/l (3.5-5.1); SODIUM 142 mmol/l (137-146)
[2016-09-13 05:59] LABS: HEMATOCRIT 29.7 % (37.0-47.0); HEMOGLOBIN 8.9 g/dl (12.0-16.0); MEAN CELL VOLUME 97.1 fL CALC (80.0-100.0); MEAN CORPUSCULAR HGB 29.1 pG CALC (26.0-32.0); NEUT# 8.29 thou/uL (2.00-7.15); RED BLOOD COUNT 3.06 mill/uL (4.20-5.60)
[2016-09-14] VITALS (14 sets, daily range): BP systolic 114–189; BP diastolic 50–89
[2016-09-14 04:43] LABS: BUN 22 mg/dL (8-23); BUN/CREATININE RATIO 40 (12-20 (CALC)); CHLORIDE 96 mmol/l (95-108); CREATININE 0.5 mg/dL (0.5-1.0); GFR > 60 ML/MIN (>=60 (CALC)); GFR FOR AFR.AMER. > 60 ML/MIN (>=60 (CALC)); GLUCOSE 122 mg/dL (82-115); POTASSIUM 4.6 mmol/l (3.5-5.1); SODIUM 141 mmol/l (137-146)
[2016-09-14 04:55] LABS: ANION GAP 8 (6-22 (CALC))
[2016-09-14 04:58] LABS: CARBON DIOXIDE 42 mmol/l (22-30)
[2016-09-14 05:28] LABS: HEMATOCRIT 28.3 % (37.0-47.0); HEMOGLOBIN 8.5 g/dl (12.0-16.0); IMMATURE GRANULOCYTES 4.1 % (0.0-1.0); MEAN CELL VOLUME 97.3 fL CALC (80.0-100.0); MEAN CORPUSCULAR HGB 29.2 pG CALC (26.0-32.0); NEUT# 10.89 thou/uL (2.00-7.15); RED BLOOD COUNT 2.91 mill/uL (4.20-5.60); RED CELL DISTRI WIDTH 13.2 % (11.5-15.5)
[2016-09-15] VITALS (21 sets, daily range): BP systolic 122–212; BP diastolic 54–108
[2016-09-15 06:22] LABS: HEMATOCRIT 28.9 % (37.0-47.0); HEMOGLOBIN 8.5 g/dl (12.0-16.0); IMMATURE GRANULOCYTES 2.6 % (0.0-1.0); MEAN CELL VOLUME 98.6 fL CALC (80.0-100.0); MEAN CORPUSCULAR HGB CONC 29.4 g/L CALC (32.0-36.0); NEUT# 7.36 thou/uL (2.00-7.15); RED BLOOD COUNT 2.93 mill/uL (4.20-5.60); RED CELL DISTRI WIDTH 13.2 % (11.5-15.5)
[2016-09-15 06:38] LABS: BUN 23 mg/dL (8-23); BUN/CREATININE RATIO 40 (12-20 (CALC)); CHLORIDE 92 mmol/l (95-108); CREATININE 0.6 mg/dL (0.5-1.0); GFR > 60 ML/MIN (>=60 (CALC)); GFR FOR AFR.AMER. > 60 ML/MIN (>=60 (CALC)); GLUCOSE 122 mg/dL (82-115); SODIUM 141 mmol/l (137-146)
[2016-09-15 06:45] LABS: ANION GAP 7 (6-22 (CALC))
[2016-09-15 06:48] LABS: CARBON DIOXIDE 47 mmol/l (22-30)
[2016-09-16] VITALS (21 sets, daily range): BP systolic 146–202; BP diastolic 59–104
[2016-09-16 05:53] LABS: HEMATOCRIT 28.3 % (37.0-47.0); HEMOGLOBIN 8.7 g/dl (12.0-16.0); IMMATURE GRANULOCYTES 0.8 % (0.0-1.0); MEAN CELL VOLUME 93.7 fL CALC (80.0-100.0); MEAN CORPUSCULAR HGB 28.8 pG CALC (26.0-32.0); MEAN CORPUSCULAR HGB CONC 30.7 g/L CALC (32.0-36.0); NEUT# 5.33 thou/uL (2.00-7.15); RED BLOOD COUNT 3.02 mill/uL (4.20-5.60); RED CELL DISTRI WIDTH 13.2 % (11.5-15.5)
[2016-09-16 06:06] LABS: BUN 27 mg/dL (8-23); BUN/CREATININE RATIO 40 (12-20 (CALC)); CALCIUM 9.4 mg/dL (8.4-10.2); CHLORIDE 87 mmol/l (95-108); CREATININE 0.7 mg/dL (0.5-1.0); GFR > 60 ML/MIN (>=60 (CALC)); GFR FOR AFR.AMER. > 60 ML/MIN (>=60 (CALC)); GLUCOSE 95 mg/dL (82-115); POTASSIUM 4.2 mmol/l (3.5-5.1); SODIUM 140 mmol/l (137-146)
[2016-09-16 06:12] LABS: ANION GAP 9 (6-22 (CALC))
[2016-09-16 06:18] LABS: CARBON DIOXIDE 48 mmol/l (22-30)
[2016-09-17] VITALS (25 sets, daily range): BP systolic 131–197; BP diastolic 59–96
[2016-09-17 05:48] LABS: HEMATOCRIT 27.2 % (37.0-47.0); HEMOGLOBIN 8.6 g/dl (12.0-16.0); IMMATURE GRANULOCYTES 2.6 % (0.0-1.0); MEAN CELL VOLUME 93.2 fL CALC (80.0-100.0); MEAN CORPUSCULAR HGB 29.5 pG CALC (26.0-32.0); MEAN CORPUSCULAR HGB CONC 31.6 g/L CALC (32.0-36.0); NEUT# 5.46 thou/uL (2.00-7.15); RED BLOOD COUNT 2.92 mill/uL (4.20-5.60); RED CELL DISTRI WIDTH 13.3 % (11.5-15.5)
[2016-09-17 05:56] LABS: BUN 32 mg/dL (8-23); BUN/CREATININE RATIO 50 (12-20 (CALC)); CALCIUM 9.4 mg/dL (8.4-10.2); CHLORIDE 90 mmol/l (95-108); CREATININE 0.6 mg/dL (0.5-1.0); GFR > 60 ML/MIN (>=60 (CALC)); GFR FOR AFR.AMER. > 60 ML/MIN (>=60 (CALC)); GLUCOSE 116 mg/dL (82-115); SODIUM 140 mmol/l (137-146)
[2016-09-17 06:02] LABS: ANION GAP 7 (6-22 (CALC))
[2016-09-17 06:12] LABS: CARBON DIOXIDE 47 mmol/l (22-30)
[2016-09-17] MEDS ORDERED: PREDNISONE10 MG PO (17:02)
== END 2016-09-17 21:30 | disposition hospice, inpatient (51) | DRG 189 ==
LOC: ENPENDDIS → ED 00:55 → ED-I 02:42 → ED 02:56 → ICU 02:57
PROVIDERS: Emergency Medicine; ADMIT Internal Medicine; ATTEND Internal Medicine
PROC: 5A09357 Assistance with Respiratory Ventilation, Less than 24 Consecutive Hours, Continuous Positive Airway Pressure (ICD-10-PCS; 2016-09-12)
PROC: 5A09457 Assistance with Respiratory Ventilation, 24-96 Consecutive Hours, Continuous Positive Airway Pressure (ICD-10-PCS; principal; 2016-09-14)
DX: J96.22 Acute and chronic respiratory failure with hypercapnia (principal); J18.9 Pneumonia, unspecified organism; E87.2 Acidosis; R64 Cachexia; I95.9 Hypotension, unspecified; D69.6 Thrombocytopenia, unspecified; J44.0 Chronic obstructive pulmonary disease with (acute) lower respiratory infection; J44.1 Chronic obstructive pulmonary disease with (acute) exacerbation; J96.21 Acute and chronic respiratory failure with hypoxia; I25.10 Atherosclerotic heart disease of native coronary artery without angina pectoris; I10 Essential (primary) hypertension; M19.90 Unspecified osteoarthritis, unspecified site; F32.9 Major depressive disorder, single episode, unspecified; I35.0 Nonrheumatic aortic (valve) stenosis; F41.1 Generalized anxiety disorder; G47.33 Obstructive sleep apnea (adult) (pediatric); I73.9 Peripheral vascular disease, unspecified; D64.9 Anemia, unspecified; R73.9 Hyperglycemia, unspecified; Z68.20 Body mass index [BMI] 20.0-20.9, adult; Z51.5 Encounter for palliative care; Z66 Do not resuscitate; Z91.19 Patient's noncompliance with other medical treatment and regimen; Z99.81 Dependence on supplemental oxygen; Z95.820 Peripheral vascular angioplasty status with implants and grafts; Z87.891 Personal history of nicotine dependence
CPT/HCPCS: J2060